=== PATIENT | female | born 1985 | race Caucasian/White ===

== ENCOUNTER 2016-05-20 00:44 | Emergency (ER) | payer BC ==
[~2016-05-20] VITALS: Ht 157.5 cm; Wt 59.0 kg
[2016-05-20] MEDS ORDERED: LOESTRIN1 EAC1 (01:16)
[2016-05-20 01:27] LABS: ABSOLUTE NEUTROPHILS 8.2 thou/uL (1.4-8.2); BASOPHILS 0.4 % (0.0-2.0); EOSINOPHILS 0.9 % (0.0-3.0); HEMATOCRIT 40.9 % (37.0-47.0); LYMPHOCYTES 18.7 % (24.0-44.0); MCH 29.4 pg (26.0-34.0); MCHC 34.4 g/dL (28.0-37.0); MCV 85.7 fL (80.0-100.0); MONOCYTES 11.1 % (1.0-8.0); PLATELET COUNT 249 thou/uL (150-400); POLYS 68.9 % (36.0-66.0); RBC 4.77 mil/uL (4.20-5.00); WBC 11.9 thou/uL (4.0-11.0)
[2016-05-20 01:38] LABS: ALBUMIN 2.9 g/dL (3.4-5.0); CALCIUM 9.3 mg/dL (8.5-10.1); CREATININE 0.9 mg/dL (0.6-1.3); POTASSIUM 3.9 mmol/L (3.5-5.1); TOTAL BILIRUBIN 0.3 mg/dL (<0.1-1.0); TOTAL PROTEIN 7.5 g/dL (6.4-8.2)
[2016-05-20 01:59] LABS: MANUAL DIFF NO
[2016-05-20 03:01] LABS: URINE BILIRUBIN NEGATIVE (Negative); URINE BLOOD 1+ (Negative); URINE COLOR YELLOW; URINE GLUCOSE-RANDOM* NEGATIVE (Negative); URINE KETONES NEGATIVE (Negative); URINE LEUKOCYTES-REFLEX TRACE (Negative); URINE PROTEIN (DIPSTICK) NEGATIVE (Negative)
[2016-05-20 03:16] LABS: CASTS None Seen /LPF (None Seen); CRYSTALS None Seen /LPF (None Seen); SQUAMOUS 4-10 Moderate /LPF (0-3)
[2016-05-20 03:17] LABS: URINE RBC 3-10 Few /HPF (0-2); URINE WBC-REFLEX 6-15 Few /HPF (0-5)
[2016-05-20] MEDS ORDERED: COMPAZINE10 MG PO (03:24)
[2016-05-20 03:45] VITALS: BP 98/62
== END 2016-05-20 03:46 | disposition home or self-care (01) ==
LOC: ER 00:44
PROVIDERS: Emergency Medicine
DX: G43.909 Migraine, unspecified, not intractable, without status migrainosus (principal); N39.0 Urinary tract infection, site not specified; F17.210 Nicotine dependence, cigarettes, uncomplicated